=== PATIENT | female | born 1980 | race Caucasian/White ===

== ENCOUNTER → 2021-12-10 12:48 | Outpatient (CLI) | payer OTHER, SELFPAY ==
--- NOTE | 2021-12-10 12:50 | DI.RAD.S_ITS ---
PROCEDURE: FL BARIUM SWALLOW W SPEECH INDICATIONS: DYSPHAGIA COMPARISON: None. TECHNIQUE: Examination was conducted in conjunction with speech pathology per standard protocol. In the lateral projection, filming was performed of the patient swallowing. AP projection filming may also be performed with patient swallowing. COMPARISON: FINDINGS: Function: The oral preparatory phase appears normal, with proper containment. The subsequent oral propulsive phase, pharyngeal phase, and esophageal phase of swallowing also appear normal with all proffered substances. No laryngotracheal penetration or aspiration. Mild vallecular residue present with different consistencies. Morphology: A 13 millimeter barium tablet passed promptly from the mouth to the stomach. IMPRESSION: 1. No tracheal aspiration visualized during the exam. 2. Please see the speech pathologist report for additional details. Dictated by: Obed Blair M.D. on 12/10/2021 at 14:45 Approved by: Obed Blair M.D. on 12/10/2021 at 14:55
--- NOTE | 2021-12-10 15:06 | ST.SWALLOW ---
Visit Care Team Role Provider Type Melba Jones PA-C Primary Care Provider Non-Staff Specialty: Medical Address: [address] [place] [address], [id number] Email: Joe Colon MD Attending Provider Physician Referring Provider Specialty: Ear, Nose, Throat Address: [address] [place] [address], [id number] Email: [email or web address] Modified Barium Swallow Study SOFTWARE DEVELOPER MANAGER Modified Barium Swallow Study Start: 12/10/21 14:29 Freq: Status: Active Protocol: Document 12/10/21 14:30 LNK (Rec: 12/10/21 15:05 LNK [id number]) Modified Barium Swallow Study Total Time Visit Start Time 13:30 Visit Stop Time 14:00 Total Visit Minutes [address] Colon Reason for Referral dysphagia Setting Setting Outpatient Care Patient Information Identification Type Name,Date of Patient History Pt was seen for a Modified Barium Swallow Study at the referral of Dr. Colon, ENT. Pt reports that she started having difficulty with breads, rice and other similar foods getting stuck in her throat near the middle of her neck. She noted that it has gotten progressively worse over the past 3 years and occurs now at every meal. Sips of water did not seem to clear the food. She can sometimes use her tongue to move the trapped food back into her mouth or to the point where she is able to swallow it. Pt denies choking or coughing when this occurs. Subjective Observations pt was seated in the fluoroscopy chair with directions and procedures described. Pt indicated she understood and agreed to the procedure. Patient Positioning Position View Lat-A/P Imaging Lateral View Textures Administered Trials Presented Thin Liquid via Spoon,Thin Liquid via Cup,Mechanical Soft Textures,Regular Textures, Barium Tablet Oral Phase Source: MBSIMP (TM) (C) Bolus Specific Scoring Grid Lip Closure No Impairment (WNL) Tongue Control During Bolus Hold No Impairment (WNL) Bolus Prep/Mastication No Impairment (WNL) Bolus Transport/Lingual Motion No Impairment (WNL) A/P Lingual Propulsion Delay No Oral Residue No Impairment (WNL) Residue Clearing No Impairment (WNL) Nasal Regurgitation No Additional Oral Phase Observations OME was observed to be WNL. DKS also WNL. Good mastication pattern with rotary chew. Tongue hold, AP transition and bolus control WNL. No oral residue observed Pharyngeal Phase Source: MBSIMP (TM) (C) Bolus Specific Scoring Grid Delayed Initiation of Pharyngeal Swallow No Soft Palate Elevation No Impairment (WNL) Tongue Base Strength/Range of Motion Mild Impairment Residue Along the Tongue Base Yes Clearance of Residue Along Tongue Base Minimal Impairment Laryngeal Elevation No Impairment (WNL) Anterior Hyoid Movement Mild Impairment Epiglottic Range of Motion Mild Impairment Vallecular Residue Yes Clearance of Vallecular Residue Mild Impairment Laryngeal Vestibular Closure No Impairment (WNL) Pharyngeal Stripping Wave Mild Impairment Posterior Pharyngeal Wall Residue No Upper Esophageal Sphincter Opening No Impairment (WNL) Residue in the Pyriform Sinuses No Esophageal Clearance Upright Position No Impairment (WNL) Pharyngoesophageal Backflow Observed No Additional Pharyngeal Phase Observations Solids were trialed first as those are the foods that are described in her swallow difficulty. Mild base of tongue weakness with bolus residue post swallow between the tongue base and the posterior pharyngeal wall. A weak tongue base negatively impacts the hyoid movement and epiglottic inversion, resulting in vallecular residue. The pt's epiglottis did completely invert and caught pharyngeal residue as it returned to its upright position. A small piece of the solid bolus is then retained in the valeculla across all solid trials. Liquid trials produced some pharyngeal residue which appeared to be WFL. Liquid residue cleared with sips of water. A/P View A/P View Observations Pharyngeal Contraction No Impairment (WNL) Vocal Fold Function Good Esophageal Function No Impairment (WNL) Esophageal Clearance Upright Position No Impairment (WNL) Esophageal Observations Esophageal Function 11mm barium tablet passed through the esophagus to the stomach without difficulty. Clinical Impressions Dysphagia Type mild pharyngeal phase dysphagia Rehabilitation Potential Excellent Patient Appropriate for Therapy Yes Recommendations Diet Liquids Order Thin Diet Order Regular Medication Recommendation As Tolerated Aspiration Precautions Recommended Precautions Alternate Liquids/Solids,Small Bites/Sips,Effortful Swallow Treatment Plan Therapy Recommendations Outpatient Speech Therapy,Base of Tongue Exercises Compensatory Strategies Recommendations Sitting Upright (90 deg),Small Bites and Sips,Alternate Liquids/Solids Short Term Goals Pr will be instructed in base of luis exercises to increase strength and aid in movement of the hyoid and reduce the risk of foods trapped in the valeculla after eating. Pt will report fewer instances of foods getting stuck in her valeculla during meals
== END ==
PROVIDERS: PCP Physician Assistant; Referring Provider Otolaryngology; Visit Provider Otolaryngology
DX: R13.12 Dysphagia, oropharyngeal phase (principal)
CPT/HCPCS: 74230; 92611

== ENCOUNTER → 2024-10-17 08:25 | Outpatient (CLI) | payer OTHER, SELFPAY ==
[2024-10-17 08:49] LABS: Hematocrit 40.7 % (36-46); Hemoglobin 13.9 g/dL (12.0-16.0); Mean Corpuscular HGB Conc 34.1 % (30-36); Mean Corpuscular Hemoglobin 30.3 PG (26-34); Mean Corpuscular Volume 88.7 fL (80-100); Platelet Count 289 X10^3/uL (150-400)
[2024-10-17 08:50] LABS: Add Manual Diff / Slide Review NO; Lymphocytes Absolute Auto 2200 /uL (1100-4500)
[2024-10-17 09:18] LABS: Alanine Aminotransferase 12 IU/L (<35); Albumin 4.5 g/dL (3.5-5.0); Albumin Globulin Ratio 1.5 (1.0-2.8); Alkaline Phosphatase 50 U/L (38-126); Blood Urea Nitrogen 20 mg/dL (7-17); Calcium 9.6 mg/dL (8.4-10.2); Carbon Dioxide 28 mmol/L (22-32); Cholesterol 196 mg/dL (140-199); Estimated Glomerular Filt Rate > 60 mL/min (>60); Globulin 3.0 g/dL (1.7-4.1); Glucose 85 mg/dL (70-99); HDL Cholesterol 64 mg/dL (40-60); HEMOLYSIS 17 (0-50); Sodium 137 mmol/L (137-145); Total Protein 7.5 g/dL (6.3-8.2); Triglycerides 61 mg/dL (35-150)
[2024-10-17 09:29] LABS: Vitamin D 25 Hydroxy (D3) 40.2 ng/mL (30.0-100.0)
[2024-10-17 09:51] LABS: Chloride 103 mmol/L (98-107); Potassium 3.9 mmol/L (3.4-5.1)
[2024-10-17 10:12] LABS: TSH w/ Reflex to FT4 1.81 uIU/mL (0.47-4.68)
== END ==
PROVIDERS: PCP Family Medicine; Referring Provider Family Medicine; Visit Provider Family Medicine
DX: F32.A Depression, unspecified (principal); Z86.39 Personal history of other endocrine, nutritional and metabolic disease
CPT/HCPCS: 36415; 80053; 80061; 82306; 84443; 85025

== ENCOUNTER → 2024-12-12 05:12 | Outpatient (CLI) | payer OTHER, SELFPAY | LOC: CAR 05:13 | PROVIDERS: PCP Family Medicine; Referring Provider Family Medicine; Visit Provider Family Medicine | DX: R00.2 Palpitations (principal) | CPT/HCPCS: 93242 ==